=== PATIENT | male | born 1955 | race Caucasian/White ===

== ENCOUNTER 2018-05-26 18:05 | Emergency (ER) | payer OTHER, SELFPAY ==
[2018-05-26 18:09] VITALS: BP 141/82; PULSE 90; RESP 18; TEMP 36.1; O2SAT 97; BMI 30.9
--- NOTE | 2018-05-26 18:29 | DI.RAD.S_ITS ---
PROCEDURE: XR CHEST 2V INDICATIONS: esophageal foreign body, perf? TECHNIQUE: 2 views of the chest were acquired. COMPARISON: None. FINDINGS: Surgical changes and devices: None. Lungs and pleura: No pleural effusions or pneumothorax. Lungs are clear. Mediastinum: Mediastinal contours are normal. Heart size is normal. Bones and chest wall: No suspicious bony abnormalities. Soft tissues appear unremarkable. IMPRESSION: No acute cardiopulmonary disease. No opaque foreign bodies. Dictated by: Maryam Galvan M.D. on 05/26/2018 at 19:37 Approved by: Maryam Galvan M.D. on 05/26/2018 at 19:38
[2018-05-26] MEDS: GLUCAGON,HUMAN RECOMBINANT 1 MG/ML VIAL IV (18:50)
--- NOTE | 2018-05-27 03:09 | ED_ITS ---
HPI - Abdominal Pain General Chief Complaint: Abdominal Pain Stated Complaint: FOOD STUCK BEHIND STERNUM Time Seen by Provider: 05/26/18 18:17 Source: patient and family Mode of arrival: ambulatory Limitations: no limitations History of Present Illness HPI narrative: Patient presents with a chief complaint of lower esophageal pain and fullness with a sensation of foreign body after eating a meal of steak and potatoes. He denies any chance of there being a hard object or bone. He states that he has been able to swallow some liquid as of late but initially vomited everything up. He denies any chest pain, shortness of breath or fever. Onset (ago): hour(s) Pain Consistency: constant Location: epigastric Severity: mild Radiation: none Migration to: no migration Relieving factors: nothing Exacerbating factors: nothing Related Data Home Medications Medication Instructions Recorded Confirmed furosemide #0 03/17/17 hydrochlorothiazide #0 03/17/17 levothyroxine [Synthroid] #0 03/17/17 metformin [Fortamet] #0 03/17/17 potassium #0 03/17/17 Previous Rx's Medication Instructions Recorded sulfamethoxazole-trimethoprim 1 tab PO BID #14 tab 03/17/17 Allergies Allergy/AdvReac Type Severity Reaction Status Date / Time No Known Allergies Allergy Uncoded 05/26/18 18:13 Review of Systems Review of Systems All systems reviewed & are unremarkable except as noted in HPI and below Constitutional Denies chills, Denies fever(s), Denies lethargy and Denies weakness Eyes Denies change in vision, Denies eye discharge, Denies irritation and Denies loss of vision ENT Ears, Nose, Mouth, and Throat: Denies change in voice, Denies neck pain and Denies sore throat Cardiovascular Denies chest pain, Denies irregular heart rhythm, Denies lightheadedness, Denies palpitations, Denies dyspnea, Denies dyspnea on exertion and Denies orthopnea Respiratory Denies cough, Denies dyspnea, Denies dyspnea on exertion and Denies wheezing Gastrointestinal Gastrointestinal: Denies abdominal pain, Denies change in bowel habits, Denies diarrhea, Denies nausea and Denies vomiting Genitourinary Denies hematuria, Denies flank pain, Denies urinary incontinence and Denies urinary urgency Musculoskeletal Denies neck pain Integumentary/Breasts Denies pruritus, Denies erythema, Denies rash and Denies wounds Neurologic Denies confusion, Denies loss of vision and Denies weakness Psychiatric Denies anxiety, Denies confusion, Denies depression, Denies homicidal ideation and Denies suicidal ideation Endocrine Denies palpitations Hematologic/Lymphatic Denies easy bruising Allergic/Immunologic Denies wheezing PFSH Social History Smoking Status: Never smoker Exam Narrative Exam Narrative: GEN: AOx3 and in mild distress EYES: Pupils are equal, round, and reactive to light and accommodation. Extraoccular muscles are intact bilaterally. There is no subconjunctival hemorrhage or exudate. CHEST: Lungs are clear to auscultation bilaterally and free of wheezes, rales, or rhonchi. Heart rate is regular rhythm, there are no murmurs, clicks, rubs, or gallops. There is no chest wall tenderness. ABD: Abdomen is soft and nontender. There is no guarding or rebound. Bowel sounds are normal in all 4 quadrants. There is no mass or organomegaly. EXT: Full painless ROM of all extremities with no loss of sensation or strength. SKIN: Warm, pink, and dry. No erythema or rash Initial Vital Signs Initial Vital Signs: Vital Signs Temperature 97.0 F L 05/26/18 18:09 Pulse Rate 90 05/26/18 18:09 Respiratory Rate 18 05/26/18 18:09 Blood Pressure 141/82 H 05/26/18 18:09 Pulse Oximetry 97 05/26/18 18:09 Course Orders Ordered: ED Orders 05/26/18 18:29 XR chest 2V Stat Discontinued Medications Glucagon (Glucagen) 1 mg IV NOW ONE Stop: 05/26/18 18:28 Last Admin: 05/26/18 18:50 Dose: 1 mg Reevaluation(s) Reevaluation #1: Patient has a near complete resolution of symptoms after wound gone followed nearly immediately by warmth injury. Patient able to drink liquids without any difficulty and denies any ongoing discomfort Vital Signs - 8 hr 05/26/18 18:09 Temperature 97.0 F L Pulse Rate 90 Respiratory Rate 18 Blood Pressure 141/82 H Pulse Oximetry 97 Discharge Plan Departure Patient Disposition: Home, Self-Care Clinical Impression: Foreign body in esophagus Discharge Date/Time: 05/26/18 19:31 Interventions: ED Discharge Assessment Last Done: 05/26/18 19:23 Instructions: DI for Removal of Foreign Body From Esophagus Activity Restrictions/Additional Instructions: *You have been diagnosed with [ resolved esophageal foreign body ] *What to do: * continue to take medications as directed *Follow up with your primary care provider in 2-3 days, call for an appointment. Let them know you were seen in the Emergency Department and that we ask that you be seen in follow up *Return to ER if you should have any new, worsening or concerning symptoms , such as [ inability to swallow, persistent vomiting, fever over 101 F, shortness of breath, chest pain or other concerning symptoms] Prescriptions: No Action potassium 99 mg Tablet Qty: 0 RF: 0 metformin [Fortamet] 500 mg Tablet Extended Release 24hr Qty: 0 RF: 0 levothyroxine [Synthroid] 25 mcg Tablet Qty: 0 RF: 0 hydrochlorothiazide 12.5 mg Capsule Qty: 0 RF: 0 furosemide 20 mg Tablet Qty: 0 RF: 0 sulfamethoxazole-trimethoprim 800 MG/160 MG tablet 1 tab PO BID Qty: 14 RF: 0
== END 2018-05-26 19:31 | disposition home or self-care (01) ==
LOC: ED 19:11
PROVIDERS: Emergency Provider Emergency Medicine
DX: T18.108A Unspecified foreign body in esophagus causing other injury, initial encounter (principal)
CPT/HCPCS: 71046; 96374; 99282; 99284; J1610

== ENCOUNTER 2021-05-24 08:26 | Emergency (ER) | payer OTHER, SELFPAY ==
[2021-05-24] VITALS (26 sets, daily range): BP systolic 115–158; BP diastolic 60–98; PULSE 69–107; RESP 14–36; TEMP 36.2; O2SAT 91–99; BMI 30.9
--- NOTE | 2021-05-24 08:29 | ED_ITS ---
HPI - General Adult General Chief complaint: Shortness of Breath/Dyspnea Stated complaint: SOB Time Seen by Provider: 05/24/21 08:29 History of Present Illness HPI narrative: A 65-year-old male with no prior lung with pathology who states that yesterday when he was pulling crab pots started to become very winded. He states this was unusual for him. He states he was not having any chest pain but did feel tightness in his chest that he related to his breathing. He states that it did improve somewhat as the day went on and last evening he felt much better. He woke up this morning and as he was loading the boat up he noticed again that he was becoming very winded. He does have a history of [id number] diabetes, hypothyroid, hypertension. [place] where he was picked up by EMS. They did EKG and found that he had a left bundle branch block. Unsure if this is new or not. Was having quite a bit of wheezing so was started on a DuoNeb prior to arrival. Patient is unsure whether not the DuoNeb was working. He does feel better when he is standing up. He denies any lower extremity swelling. Related Data Home Medications Medication Instructions Recorded Confirmed aspirin 81 mg tablet 81 mg PO DAILY 05/24/21 05/24/21 atorvastatin 20 mg tablet 20 mg PO QPM 05/24/21 05/24/21 glyburide 5 mg tablet 5 mg PO DAILY 05/24/21 05/24/21 hydrochlorothiazide 25 mg tablet 25 mg PO DAILY 05/24/21 05/24/21 levothyroxine 150 mcg tablet 150 mcg PO DAILY 05/24/21 05/24/21 lisinopril 40 mg tablet 40 mg PO QAM 05/24/21 05/24/21 metformin 1,000 mg tablet 1,000 mg PO BID 05/24/21 05/24/21 pantoprazole 40 mg tablet,delayed 40 mg PO QAM 05/24/21 05/24/21 release Allergies Allergy/AdvReac Type Severity Reaction Status Date / Time No Known Drug Allergies Allergy Verified 05/24/21 12:24 Review of Systems Constitutional Constitutional: Denies fever(s) Eyes Eyes: Denies change in vision ENT Ears, Nose, Mouth, and Throat: Reports system reviewed and no additional complaints, except as documented Cardiovascular Cardiovascular: Denies chest pain, Denies pedal edema and Reports dyspnea Respiratory Respiratory: Reports chest congestion, Reports cough, Reports dyspnea and Reports wheezing Gastrointestinal Gastrointestinal: Reports system reviewed and no additional complaints, except as documented and Denies abdominal pain Genitourinary Genitourinary: Reports system reviewed and no additional complaints, except as documented Musculoskeletal Musculoskeletal: Reports system reviewed and no additional complaints, except as documented Integumentary/Breasts Skin/Breast: Reports system reviewed and no additional complaints, except as documented Neurologic Neurologic: Reports system reviewed and no additional complaints, except as documented Psychiatric Psychiatric: Reports system reviewed and no additional complaints, except as documented Hematologic/Lymphatic On Anticoagulants: No Allergic/Immunologic Allergic/Immunologic: Reports wheezing Patient History Medical History Diabetes Gastroesophageal reflux disease Hypertension Hypothyroid Social History Smoking Status: Never smoker Smoking Status: Never smoker alcohol intake frequency: 0-2 drinks per day Substance Use Type: does not use Exam Initial Vital Signs Initial Vital Signs: Vital Signs Pulse Rate 103 H 05/24/21 08:34 Pulse Oximetry 97 05/24/21 08:34 Const General: healthy appearing, comfortable, well groomed and acute distress (Mild) HENMT Head: normal to inspection and normocephalic Eyes General: appearance normal, both eyes and all related structures Chest Chest: normal inspection of the chest and No crepitus Resp Effort & Inspection: labored and tachypneic Auscultation: wheezes Cardio Rate: tachycardic Rhythm: regular rhythm GI Inspection: normal to inspection and non-distended Skin General: no rashes or lesions noted Neuro General: patient alert, patient awake, patient oriented x3 and moves all extremities Speech: speech normal Extrem General: normal to inspection, capillary refill normal, no pedal edema and No edema Psych Appearance: grossly normal and well kempt Course Orders Ordered: ED Orders 05/24/21 12:20 Troponin & CK Cardiac Panel Stat 05/24/21 15:00 Troponin & CK Cardiac Panel Stat 05/24/21 16:40 PTT [Partial Thromboplastin Time] Stat 05/24/21 22:30 PTT [Partial Thromboplastin Time] Stat Sodium Chloride (Normal Saline 0.9%) 1,000 mls @ 125 mls/hr IV CONT CHRISTIAN Last Admin: 05/24/21 09:24 Dose: 125 mls/hr Documented by: [email or web address] Heparin Sodium/Dextrose (Heparin Drip) 25,000 unit in 500 mls @ 20 mls/hr IV CONT CHRISTIAN; Protocol Last Titration: 05/24/21 17:34 Dose: 1,050 units/hr, 21 mls/hr Documented by: Admin: 05/24/21 10:28 Dose: 1,000 units/hr, 20 mls/hr Documented by: CLAYTON Discontinued Medications Aspirin (Aspirin 81 Mg Chew Tab) 324 mg PO NOW ONE Stop: 05/24/21 10:08 Last Admin: 05/24/21 10:27 Dose: 324 mg Documented by: CLAYTON Heparin Sodium (Porcine) (Heparin 5,000 Unit/Ml Vial) 5,000 unit IV NOW ONE Stop: 05/24/21 10:07 Last Admin: 05/24/21 10:27 Dose: 5,000 unit Documented by: CLAYTON Vital Signs Vital signs: Vital Signs - 8 hr 05/24/21 10:09 05/24/21 10:30 05/24/21 11:34 Pulse Rate 88 83 82 Respiratory Rate 30 H 24 24 Blood Pressure 126/61 Pulse Oximetry 97 95 95 05/24/21 12:00 05/24/21 12:25 05/24/21 12:30 Pulse Rate 79 76 75 Respiratory Rate 26 H 25 H 24 Blood Pressure 120/60 Pulse Oximetry 95 05/24/21 13:00 05/24/21 13:33 05/24/21 14:00 Pulse Rate 74 85 71 Respiratory Rate 24 36 H 14 Blood Pressure Pulse Oximetry 91 05/24/21 14:30 05/24/21 15:00 05/24/21 15:30 Pulse Rate 69 73 78 Respiratory Rate 22 18 26 H Blood Pressure Pulse Oximetry 91 92 93 05/24/21 16:00 05/24/21 16:29 05/24/21 16:30 Pulse Rate 80 74 73 Respiratory Rate 24 30 H 16 Blood Pressure 129/66 129/66 Pulse Oximetry 96 96 96 05/24/21 17:00 05/24/21 17:30 05/24/21 17:35 Pulse Rate 74 72 78 Respiratory Rate 26 H 20 26 H Blood Pressure 122/64 Pulse Oximetry 96 94 96 Medical Decision Making Medical Records Medical records reviewed: Yes I reviewed the patient's medical records. Lab Data Lab results reviewed: Yes I reviewed the patient's lab results. Result diagrams: 05/24/21 08:55 05/24/21 08:55 Labs: Lab Results 05/24/21 05/24/21 05/24/21 Range/Units 08:40 08:55 08:55 WBC 8.1 (4.5-11.0) X10^3/uL RBC 5.11 (4.5-5.9) X10^6/uL Hgb 15.2 (13.5-17.5) g/dL Hct 45.9 (41-53) % MCV 89.8 (80-100) fL MCH 29.8 (26-34) PG MCHC 33.2 (30-36) % RDW 12.6 (11.6-14.8) % Plt Count 172 (150-400) X10^3/uL Neut % (Auto) 74.6 (50-75) % Lymph % (Auto) 15.3 L (25-40) % [place] % (Auto) 7.6 (3-14) % Eos % (Auto) 2.0 (2-4) % Baso % (Auto) 0.5 (0-2) % Neut # (Auto) 6100 (1427-6136) /uL Lymph # (Auto) 1200 (6244-6747) /uL [place] # (Auto) 600 (0-900) /uL Eos # (Auto) 200 (0-450) /uL Baso # (Auto) 0 (0-100) /uL PT (10.1-12.7) SECONDS INR (0.9-1.3) APTT (26.4-36.2) SECONDS Sodium 138 (137-145) mmol/L Potassium 4.1 (3.4-5.1) mmol/L Chloride 104 (98-107) mmol/L Carbon Dioxide 22 (22-32) mmol/L BUN 32 H (9-20) mg/dL Creatinine 0.98 (0.66-1.25) mg/dL Estimated GFR > 60.0 (>60) mL/min BUN/Creatinine Ratio 32.7 H (6-22) Glucose 226 H (80-110) mg/dL Calcium 9.9 (8.4-10.2) mg/dL Magnesium 2.0 (1.6-2.3) mg/dL Total Bilirubin 0.6 (0.2-1.3) mg/dL AST 41 (17-59) IU/L ALT 50 H (<50) IU/L Alkaline Phosphatase 111 (38-126) U/L Total Creatine Kinase (55-170) U/L CK-MB (CK-2) (<2.37) ng/mL CK-MB (CK-2) Rel Index (1.5-5.0) % Troponin I (0.01-0.034) ng/mL NT-Pro-B Natriuret Pep 668 H (<125) pg/mL Total Protein 8.1 (6.3-8.2) g/dL Albumin 4.6 (3.5-5.0) g/dL Globulin 3.5 (1.7-4.1) g/dL Albumin/Globulin Ratio 1.3 (1.0-2.8) Lipase 136 (23-300) U/L TSH (0.47-4.68) uIU/mL SARS-CoV-2 (PCR) Negative (Negative) 05/24/21 05/24/21 05/24/21 Range/Units 08:55 08:55 08:55 WBC (4.5-11.0) X10^3/uL RBC (4.5-5.9) X10^6/uL Hgb (13.5-17.5) g/dL Hct (41-53) % MCV (80-100) fL MCH (26-34) PG MCHC (30-36) % RDW (11.6-14.8) % Plt Count (150-400) X10^3/uL Neut % (Auto) (50-75) % Lymph % (Auto) (25-40) % [place] % (Auto) (3-14) % Eos % (Auto) (2-4) % Baso % (Auto) (0-2) % Neut # (Auto) (9145-5693) /uL Lymph # (Auto) (7825-1882) /uL [place] # (Auto) (0-900) /uL Eos # (Auto) (0-450) /uL Baso # (Auto) (0-100) /uL PT 11.0 (10.1-12.7) SECONDS INR 1.0 (0.9-1.3) APTT 30 (26.4-36.2) SECONDS Sodium (137-145) mmol/L Potassium (3.4-5.1) mmol/L Chloride (98-107) mmol/L Carbon Dioxide (22-32) mmol/L BUN (9-20) mg/dL Creatinine (0.66-1.25) mg/dL Estimated GFR (>60) mL/min BUN/Creatinine Ratio (6-22) Glucose (80-110) mg/dL Calcium (8.4-10.2) mg/dL Magnesium (1.6-2.3) mg/dL Total Bilirubin (0.2-1.3) mg/dL AST (17-59) IU/L ALT (<50) IU/L Alkaline Phosphatase (38-126) U/L Total Creatine Kinase 172 H (55-170) U/L CK-MB (CK-2) 4.82 H (<2.37) ng/mL CK-MB (CK-2) Rel Index 2.8 (1.5-5.0) % Troponin I 0.182 H* (0.01-0.034) ng/mL NT-Pro-B Natriuret Pep (<125) pg/mL Total Protein (6.3-8.2) g/dL Albumin (3.5-5.0) g/dL Globulin (1.7-4.1) g/dL Albumin/Globulin Ratio (1.0-2.8) Lipase (23-300) U/L TSH 0.669 (0.47-4.68) uIU/mL SARS-CoV-2 (PCR) (Negative) 05/24/21 05/24/21 05/24/21 Range/Units 12:20 15:00 16:40 WBC (4.5-11.0) X10^3/uL RBC (4.5-5.9) X10^6/uL Hgb (13.5-17.5) g/dL Hct (41-53) % MCV (80-100) fL MCH (26-34) PG MCHC (30-36) % RDW (11.6-14.8) % Plt Count (150-400) X10^3/uL Neut % (Auto) (50-75) % Lymph % (Auto) (25-40) % [place] % (Auto) (3-14) % Eos % (Auto) (2-4) % Baso % (Auto) (0-2) % Neut # (Auto) (7728-4134) /uL Lymph # (Auto) (4486-7169) /uL [place] # (Auto) (0-900) /uL Eos # (Auto) (0-450) /uL Baso # (Auto) (0-100) /uL PT (10.1-12.7) SECONDS INR (0.9-1.3) APTT 40 H D (26.4-36.2) SECONDS Sodium (137-145) mmol/L Potassium (3.4-5.1) mmol/L Chloride (98-107) mmol/L Carbon Dioxide (22-32) mmol/L BUN (9-20) mg/dL Creatinine (0.66-1.25) mg/dL Estimated GFR (>60) mL/min BUN/Creatinine Ratio (6-22) Glucose (80-110) mg/dL Calcium (8.4-10.2) mg/dL Magnesium (1.6-2.3) mg/dL Total Bilirubin (0.2-1.3) mg/dL AST (17-59) IU/L ALT (<50) IU/L Alkaline Phosphatase (38-126) U/L Total Creatine Kinase 241 H 228 H (55-170) U/L CK-MB (CK-2) 14.10 H D 16.00 H (<2.37) ng/mL CK-MB (CK-2) Rel Index 5.9 H 7.0 H* (1.5-5.0) % Troponin I 1.500 H* 2.940 H* (0.01-0.034) ng/mL NT-Pro-B Natriuret Pep (<125) pg/mL Total Protein (6.3-8.2) g/dL Albumin (3.5-5.0) g/dL Globulin (1.7-4.1) g/dL Albumin/Globulin Ratio (1.0-2.8) Lipase (23-300) U/L TSH (0.47-4.68) uIU/mL SARS-CoV-2 (PCR) (Negative) Imaging Data CT scan - chest: Radiologist's Impression: [address] [id number] Scan ReportSigned Patient: Óscar Rodriguez GMR#: [id number]: 7Acct:[id number]/Sex: 65 / MDate of Service: 05/24/21Loc: EDAccession Number: [id number] Procedure: CT angio chest PE protocol Ordering Provider: Ricardo Ellis D.O. PROCEDURE: CT ANGIO CHEST PE PROTOCOL INDICATIONS: Chest pain, shortness of breath, tachycardia TECHNIQUE: After the administration of intravenous contrast, 2 mm thick sections acquired from the pulmonary apices to the posterior costophrenic angles. maximum intensity projection (MIP) coronal and sagittal reformats were then acquired through the thorax. For radiation dose reduction, the following was used: automated exposure control, adjustment of mA and/or kV according to patient size. [facility] 05/26/2018, 18:07. FINDINGS: Image quality: Slightly delayed bolus timing limits assessment of the distal pulmonary vasculature Pulmonary arteries: Pulmonary arteries are normal in size, and demonstrate no intraluminal filling defects to suggest central pulmonary embolism. Lungs and pleura: Central and peripheral airways are patent. Septal thickening is noted apices as well as lung bases may reflect mild pulmonary edema. Patchy nonspecific trace peripheral ground-glass densities noted. Trace bibasilar pleural effusions present. Mediastinum: Heart size is normal, without pericardial effusion. No mediastinal or hilar adenopathy. Thoracic aorta is normal in caliber and enhancement. Esophagus is normal in caliber, without hiatal hernia. Small scattered nonenlarged lymph nodes noted. Dense coronary artery vascular calcification as well as calcification of the aortic annulus2 Bones and chest wall: No suspicious bony lesions. Ribs and thoracic spine appear intact throughout. Thyroid gland nonvisualized. No axillary or supraclavicular adenopathy. Abdomen: Visualized upper abdominal solid organs appear normal in the early arterial phase of enhancement. IMPRESSION: No evidence of central pulmonary embolism, aortic aneurysm or dissection. Evaluation of the distal pulmonary vasculature is limited by bolus timing. Pulmonary septal thickening, mild peripheral ground-glass density and small bibasilar pleural effusions may reflect mild pulmonary edema and/or pneumonitis Dictated by: Gopi Hernandez M.D. on 05/24/2021 at 8:56 Approved by: Gopi Hernandez M.D. on 05/24/2021 at 9:09 ECG Data Attestation: I personally reviewed and interpreted this ECG as follows: Prior ECG tracings: not available for review Interpretation: Sinus rhythm Ventricular rate 94 Left bundle branch block QTC 530 milliseconds Has a score of 2 on Sgarbossa's criteria for having [address] elevation in V2 with a primarily negative QRS complex. Has less than [address] elevation in V1 and V3. MDM Narrative Medical decision making narrative: Patient has never had chest pain. His only symptoms have been respiratory. Initial EKG shows a left bundle branch block. No prior EKGs to compare this to. CT scan shows no pulmonary embolism. Initial troponin elevated. Was given aspirin. Started on heparin. Subsequent troponins continue to rise. Discussed the case with Dr. Salgado with cardiology at the [facility] who agreed with the care plan and accepted patient however there is no bed availability. I then discussed the case with Dr. Pina with Cardiology at [facility] who also agreed to accept the patient initially agreed with the care plan. As I was talking with the hospitalist we were then connected with Dr. Pina again who was able to find an old EKG from March of this year which showed sinus rhythm but no left bundle branch block. He recommended that the patient be treated as a ST-elevation MD. I then discussed the case with Dr. Ramsey the STEMI provider at [facility] who stated that the patient should be treated as a non ST elevation MD. He stated that he does require catheterization but nothing emergent. [facility] has no bed availability. I then discussed the case with Dr. Davidson the hospitalist at [facility] who accepts the patient in transfer. I did not have any direct conversations with Cardiology at [facility]. The patient has remained asymptomatic and stable since being here in the emergency department. Will transfer. I did discuss all of the findings and the need for transfer with the family. They expressed understanding and agreement. Critical Care Time Critical Care Time Critical Care Time: Yes Total Critical Care Time: 65 Attestation: The high probability of a clinically significant, sudden or life threatening deterioration of the cardiovascular system(s) required my full and direct attention, intervention and personal management. The aggregate critical care time was 65 minutes. This time is in addition to time spent performing reported procedures but includes the following: [x] Data Review and interpretation [x] Patient assessment and monitoring of vital signs [x] Documentation [x] Medication orders and management Discharge Plan Departure Patient Disposition: [facility] Clinical Impression: Non-ST elevation MD (NSTEMI) Prescriptions: No Action atorvastatin 20 mg tablet 20 mg PO QPM RF: 0 glyburide 5 mg tablet 5 mg PO DAILY RF: 0 hydrochlorothiazide 25 mg tablet 25 mg PO DAILY RF: 0 levothyroxine 150 mcg tablet 150 mcg PO DAILY RF: 0 metformin 1,000 mg tablet 1,000 mg PO BID RF: 0 lisinopril 40 mg tablet 40 mg PO QAM RF: 0 pantoprazole 40 mg tablet,delayed release (DR/EC) 40 mg PO QAM RF: 0 aspirin 81 mg Tablet 81 mg PO DAILY RF: 0
--- NOTE | 2021-05-24 08:39 | DI.CT.S_ITS ---
PROCEDURE: CT ANGIO CHEST PE PROTOCOL INDICATIONS: Chest pain, shortness of breath, tachycardia TECHNIQUE: After the administration of intravenous contrast, 2 mm thick sections acquired from the pulmonary apices to the posterior costophrenic angles. maximum intensity projection (MIP) coronal and sagittal reformats were then acquired through the thorax. For radiation dose reduction, the following was used: automated exposure control, adjustment of mA and/or kV according to patient size. COMPARISON: [facility], CR, XR CHEST 2V, 05/26/2018, 18:07. FINDINGS: Image quality: Slightly delayed bolus timing limits assessment of the distal pulmonary vasculature Pulmonary arteries: Pulmonary arteries are normal in size, and demonstrate no intraluminal filling defects to suggest central pulmonary embolism. Lungs and pleura: Central and peripheral airways are patent. Septal thickening is noted apices as well as lung bases may reflect mild pulmonary edema. Patchy nonspecific trace peripheral ground-glass densities noted. Trace bibasilar pleural effusions present. Mediastinum: Heart size is normal, without pericardial effusion. No mediastinal or hilar adenopathy. Thoracic aorta is normal in caliber and enhancement. Esophagus is normal in caliber, without hiatal hernia. Small scattered nonenlarged lymph nodes noted. Dense coronary artery vascular calcification as well as calcification of the aortic annulus2 Bones and chest wall: No suspicious bony lesions. Ribs and thoracic spine appear intact throughout. Thyroid gland nonvisualized. No axillary or supraclavicular adenopathy. Abdomen: Visualized upper abdominal solid organs appear normal in the early arterial phase of enhancement. IMPRESSION: No evidence of central pulmonary embolism, aortic aneurysm or dissection. Evaluation of the distal pulmonary vasculature is limited by bolus timing. Pulmonary septal thickening, mild peripheral ground-glass density and small bibasilar pleural effusions may reflect mild pulmonary edema and/or pneumonitis Dictated by: Gopi Hernandez M.D. on 05/24/2021 at 8:56 Approved by: Gopi Hernandez M.D. on 05/24/2021 at 9:09
[2021-05-24 09:03] LABS: Add Manual Diff / Slide Review NO; Basophils Absolute Auto 0 /uL (0-100); Basophils Percent Auto 0.5 % (0-2); Eosinophils Absolute Auto 200 /uL (0-450); Hematocrit 45.9 % (41-53); Hemoglobin 15.2 g/dL (13.5-17.5); Lymphocytes Absolute Auto 1200 /uL (1100-4500); Lymphocytes Percent Auto 15.3 % (25-40); Mean Corpuscular HGB Conc 33.2 % (30-36); Mean Corpuscular Hemoglobin 29.8 PG (26-34); Mean Corpuscular Volume 89.8 fL (80-100); Monocytes Absolute Auto 600 /uL (0-900); Monocytes Percent Auto 7.6 % (3-14); Neutrophils Absolute Auto 6100 /uL (1500-7000); Neutrophils Percent Auto 74.6 % (50-75); Platelet Count 172 X10^3/uL (150-400); Red Blood Cell Count 5.11 X10^6/uL (4.5-5.9); Red Cell Distribution Width 12.6 % (11.6-14.8); White Blood Cell Count 8.1 X10^3/uL (4.5-11.0)
[2021-05-24 09:18] LABS: Creatine Kinase 172 U/L (55-170)
[2021-05-24 09:20] LABS: Alanine Aminotransferase 50 IU/L (<50); Albumin 4.6 g/dL (3.5-5.0); Albumin Globulin Ratio 1.3 (1.0-2.8); Alkaline Phosphatase 111 U/L (38-126); Aspartate Aminotransferase 41 IU/L (17-59); BUN Creatinine Ratio 32.7 (6-22); Bilirubin Total 0.6 mg/dL (0.2-1.3); Blood Urea Nitrogen 32 mg/dL (9-20); Calcium 9.9 mg/dL (8.4-10.2); Carbon Dioxide 22 mmol/L (22-32); Chloride 104 mmol/L (98-107); Estimated Glomerular Filt Rate > 60.0 mL/min (>60); Globulin 3.5 g/dL (1.7-4.1); Glucose 226 mg/dL (80-110); HEMOLYSIS < 15 (0-50); Lipase 136 U/L (23-300); Potassium 4.1 mmol/L (3.4-5.1); Sodium 138 mmol/L (137-145); Total Protein 8.1 g/dL (6.3-8.2)
[2021-05-24] MEDS: SODIUM CHLORIDE 0.9% 1,000 ML 125 ML IV (09:24)
[2021-05-24 09:28] LABS: NT-proBNP (BNP-Adult 18+) 668 pg/mL (<125)
[2021-05-24 09:33] LABS: CKMB % Relative Index 2.8 % (1.5-5.0); Creatine Kinase MB 4.82 ng/mL (<2.37)
[2021-05-24 09:47] LABS: COVID19 - ADMIT (NP swab/PCR) Negative (Negative)
[2021-05-24 09:52] LABS: Thyroid Stimulating Hormone 0.669 uIU/mL (0.47-4.68)
[2021-05-24 10:05] LABS: Troponin I 0.182 ng/mL (0.01-0.034)
[2021-05-24] MEDS: HEPARIN 5,000 UNIT/ML VIAL 5000 UNIT IV (10:27)
[2021-05-24] MEDS: ASPIRIN 81 MG CHEW TAB 324 MG PO (10:27)
[2021-05-24] MEDS: HEPARIN DRIP 25,000 UNIT/500 ML IV.SOLN 20 UNIT IV (10:28)
[2021-05-24 10:42] LABS: PTT Partial Thromboplastin Tim 30 SECONDS (26.4-36.2)
[2021-05-24 12:36] LABS: Creatine Kinase 241 U/L (55-170)
[2021-05-24 12:51] LABS: CKMB % Relative Index 5.9 % (1.5-5.0)
[2021-05-24 15:19] LABS: Creatine Kinase 228 U/L (55-170)
[2021-05-24 17:01] LABS: PTT Partial Thromboplastin Tim 40 SECONDS (26.4-36.2)
--- NOTE | 2021-05-24 18:12 | PC.NURSE ---
Report to [facility]
--- NOTE | 2021-05-24 19:15 | PC.NURSE ---
Report to Lucia TILLMAN at [place].
== END 2021-05-24 18:20 | disposition short-term general hospital (02) ==
PROVIDERS: Emergency Provider Emergency Medicine
DX: I21.4 Non-ST elevation (NSTEMI) myocardial infarction (principal); R06.82 Tachypnea, not elsewhere classified; R07.9 Chest pain, unspecified; R00.0 Tachycardia, unspecified; Z20.822 Contact with and (suspected) exposure to COVID-19
CPT/HCPCS: 36415; 71275; 80053; 82550; 82553; 83690; 83735; 83880; 84443; 84484; 85025; 85610; 85730; 87635; 93005; 93010; 96365; 96366; 96375; 99285; 99291; C9803; J1644; Q9967